=== PATIENT | female | born 1955 | race Caucasian/White ===

== ENCOUNTER 2022-06-28 13:18 | Outpatient (CLI) | payer MEDICARE, SELFPAY ==
--- NOTE | 2022-06-28 13:40 | CRLHL7_ITS ---
For Patients: As a result of the Century Cures Act, medical imaging exams and procedure reports are released immediately into your electronic medical record. You may view this report before your referring provider. If you have questions, please contact your health care provider. BILATERAL SCREENING MAMMOGRAM WITH COMPUTER-AIDED DETECTION AND TOMOSYNTHESIS TECHNIQUE: CC and MLO views were obtained. These mammographic images have been obtained using full-field digital technique. These mammographic images were interpreted with the benefit of computer-aided detection. Breast tomosynthesis was used in this interpretation. COMPARISON FILM: 07/01/20, 11/28/18, 05/23/17. FINDINGS: There are scattered areas of fibroglandular density. IMPRESSION: There is no radiographic evidence for malignancy. ASSESSMENT: BI-RADS Category 1: Negative RECOMMENDATION: Routine screening mammogram in 1 year. A lay language report of this examination will be provided to the patient. SACHIN TRIPP M.D. Diagnostic Radiologist [email or web address] Transcribed: 6:[address]/Dictated by: Sachin Tripp MD @ 06/29/2022 9:24:00 AM (Electronically Signed)
== END 2022-06-28 13:19 | disposition home or self-care (01) ==
PROVIDERS: PCP Family Medicine; Visit Provider Family Medicine
DX: Z12.31 Encounter for screening mammogram for malignant neoplasm of breast (principal)
CPT/HCPCS: 77063; 77067

== ENCOUNTER 2022-07-25 10:45 | Outpatient (CLI) | payer MEDICARE, SELFPAY ==
[2022-07-25 17:31] LABS: Chloride* 106 mmol/L (96-114); Sodium* 141 mmol/L (135-149)
[2022-07-25 17:34] LABS: Blood Urea Nitrogen* 18 mg/dL (7-30); Carbon Dioxide* 30 mmol/L (20-32); Cholesterol* 209 mg/dL (90-199); Creatinine* 0.7 mg/dL (0.5-1.5); Estimated Glomerular Filt Rate 95 ml/min
[2022-07-25 17:35] LABS: Calcium* 9.1 mg/dL (8.4-10.6); Glucose* 84 mg/dL (60-115); HDL Cholesterol* 77 mg/dL (>=50); LDL Cholesterol Calculated 111 mg/dL (<100); Triglycerides* 107 mg/dL (40-149)
[2022-07-25 18:22] LABS: Vitamin B12* 491 pg/mL (243-894)
== END 2022-07-25 10:46 | disposition home or self-care (01) ==
PROVIDERS: PCP Family Medicine; Visit Provider Family Medicine
DX: E78.5 Hyperlipidemia, unspecified (principal); Z13.1 Encounter for screening for diabetes mellitus; Z13.21 Encounter for screening for nutritional disorder
CPT/HCPCS: 80048; 80061; 82607

== ENCOUNTER 2023-03-14 08:49 | Outpatient (CLI) | payer MEDICARE, SELFPAY | END 2023-03-14 08:50 | disposition home or self-care (01) | LOC: LONREF 08:50 | PROVIDERS: PCP Family Medicine; Visit Provider Family Medicine | DX: Z01.818 Encounter for other preprocedural examination (principal) | CPT/HCPCS: 80048 ==

== ENCOUNTER 2023-10-10 12:39 | Outpatient (CLI) | payer MEDICARE, SELFPAY ==
--- NOTE | 2023-10-10 13:00 | MM_ITS ---
Patient: CLARA ARMANDO Facility:?[facility] Patient ID:?[id number] Site Patient ID:?[id number]. Site :?[id number] Study:?XRay-Breast Bilateral 3D screening mammogram w/cad-10/10/2023 1:25:53 PM Ordering Physician:Ervin Final Report: BILATERAL SCREENING MAMMOGRAM WITH COMPUTER-AIDED DETECTION AND TOMOSYNTHESIS TECHNIQUE: CC and MLO views were obtained. These mammographic images have been obtained using full-field digital technique. These mammographic images were interpreted with the benefit of computer-aided detection. Breast tomosynthesis was used in this interpretation. COMPARISON FILM: 06/28/22, 07/01/20, 11/28/18. FINDINGS: There are scattered areas of fibroglandular density. IMPRESSION: There is no radiographic evidence for malignancy. ASSESSMENT: BI-RADS Category 1: Negative RECOMMENDATION: Routine screening mammogram in 1 year. A lay language report of this examination will be provided to the patient. ROBB TRIPP M.D. Diagnostic Radiologist [email or web address] JUAN/liliam D& Transcribed: 4:[address]/Dictated by: Robb Tripp MD @ 10/11/2023 11:11:00 AM Signed by:Babatunde Tripp MD @10/12/2023 5:30:15 AM (Electronic Signature)
== END 2023-10-10 12:40 | disposition home or self-care (01) ==
PROVIDERS: PCP Family Medicine; Visit Provider Family Medicine
DX: Z12.31 Encounter for screening mammogram for malignant neoplasm of breast (principal)
CPT/HCPCS: 77063; 77067

== ENCOUNTER 2024-01-30 09:01 | Outpatient (CLI) | payer MEDICARE, SELFPAY | END 2024-01-30 09:02 | disposition home or self-care (01) | LOC: LKVREF 09:02 | PROVIDERS: PCP Family Medicine; Visit Provider Family Medicine | DX: E78.5 Hyperlipidemia, unspecified (principal) | CPT/HCPCS: 80061 ==

== ENCOUNTER 2025-05-28 09:37 | Outpatient (CLI) | payer MEDICARE, SELFPAY | END 2025-05-28 09:38 | disposition home or self-care (01) | PROVIDERS: PCP Family Medicine; Visit Provider Family Medicine | DX: E78.00 Pure hypercholesterolemia, unspecified (principal); Z13.1 Encounter for screening for diabetes mellitus | CPT/HCPCS: 80048; 80061 ==